=== PATIENT | male | born 1950 | race African-American/Black ===

== ENCOUNTER 2021-12-17 16:04 | Inpatient (IN) ==
[2021-12-17 17:14] LABS: ABS Lymphocytes 0.8 10^3/ul (1.0-4.8); ABS Neutrophils 5.7 10^3/ul (1.5-7.7); Hematocrit 38 % (42-52); Hemoglobin 12.7 g/dL (14.0-18.0); Lymphocyte % 10.2 %; Mean Corpuscular HGB Conc 34 g/dL (31-36); Mean Corpuscular Hemoglobin 28 pg (27-31); Mean Corpuscular Volume 82 fL (80-94); Mean Platelet Volume 8.5 fL (7.4-10.4); Nucleated Red Blood Cells % 0.1; Platelet Count 317 10^3/uL (150-450); Red Blood Count 4.58 10^6 /uL (4.18-5.48); Red Cell Distribution Width 13 % (10-15); White Blood Count 7.5 10^3/uL (3.5-10.8)
[2021-12-17 17:55] LABS: Albumin 3.3 g/dL (3.2-5.2); Albumin/Globulin Ratio 0.8 (1-3); Calcium 8.5 mg/dL (8.6-10.3); Globulin 3.9 g/dL (2-4); Magnesium 1.7 mg/dL (1.9-2.7); Potassium 3.7 mmol/L (3.5-5.0); Total Bilirubin 0.7 mg/dL (0.2-1.0); Total Protein 7.2 g/dL (6.4-8.9); eGFR CKD-EPI 104.5 (>60)
[2021-12-17] MEDS ORDERED: Lactated Ringers 1000 ml BAG 1,000 ML IV ONE (17:56)
[2021-12-17 18:05] LABS: Venous Bicarbonate HCO3 14.5 mmol/L (24-28)
[2021-12-17 18:09] LABS: Urine Appearance Clear; Urine Bilirubin Negative (Negative); Urine Blood 1+ (Negative); Urine Color Straw; Urine Glucose 3+(>=500 mg/dL) (Negative); Urine Ketones 2+ (Negative); Urine Nitrite Negative (Negative); Urine Protein Negative (Negative); Urine Specific Gravity 1.023 (1.002-1.030); Urine Urobilinogen Negative (Negative)
[2021-12-17 18:10] LABS: TSH Ultra Thyroid Stim Horm 5.38 mcIU/mL (0.34-5.60)
[2021-12-17 18:14] LABS: Urine Bacteria Absent (Absent); Urine Red Blood Cell Trace(0-2/hpf) (Absent); Urine Squamous Epithelial Cell Present (Absent); Urine White Blood Cell Trace(0-5/hpf) (Absent)
[2021-12-17] MEDS ORDERED: Dextrose 50% Syringe 50 ml 25 GM/50 ML SYRINGE IV PUSH PRN (18:21)
[2021-12-17] MEDS ORDERED: NORMOSOL-R pH 7.4 1000 mL BAG 1,000 ML IV ONE (18:21)
[2021-12-17] MEDS ORDERED: Insulin Infusion 100unit/100mL 100 UNIT/100 ML BAG IV SCH (19:00)
[2021-12-17] MEDS ORDERED: Ondansetron 4 mg VIAL 2 MG/ML 2 ml VIAL IV PRN (19:17)
[2021-12-17] MEDS ORDERED: NORMOSOL-R pH 7.4 1000 mL BAG 1,000 ML IV SCH (20:00)
[2021-12-17] MEDS ORDERED: NS 0.9% w/ 20 Meq KCL 1000 ml 1,000 ML IV SCH (20:00)
[2021-12-17] MEDS ORDERED: D5W NS 0.9% 20Meq KCL 1000 ml 1,000 ML IV SCH (21:00)
[2021-12-17 21:08] LABS: Insulin 1.3 mcIU/mL (2.0-16.0)
[2021-12-17 23:42] LABS: Blood Urea Nitrogen 12 mg/dL (6-24); CO2 Carbon Dioxide 22 mmol/L (22-32); Calcium 8.2 mg/dL (8.6-10.3); Chloride 97 mmol/L (101-111); Glucose 198 mg/dL (70-100); Magnesium 1.7 mg/dL (1.9-2.7); Sodium 130 mmol/L (135-145); eGFR CKD-EPI 107.3 (>60)
[2021-12-17 23:59] LABS: Anion Gap 11 mmol/L (2-11)
[2021-12-18] MEDS ORDERED: Insulin GLARGINE 100 un/ml 10 ml VIAL SUBCUT ONE ×2 (00:27→10:56)
[2021-12-18] MEDS: Enoxaparin 40 MG/0.4 ML SYR SUBCUT SCH ×2 (03:58→19:10)
[2021-12-18 04:50] LABS: CO2 Carbon Dioxide 26 mmol/L (22-32); Calcium 8.5 mg/dL (8.6-10.3); Chloride 98 mmol/L (101-111); Sodium 132 mmol/L (135-145)
[2021-12-18 04:55] LABS: Blood Urea Nitrogen 10 mg/dL (6-24); Glucose 120 mg/dL (70-100); eGFR CKD-EPI 111.8 (>60)
[2021-12-18 04:59] LABS: Anion Gap 8 mmol/L (2-11)
[2021-12-18] MEDS ORDERED: Dextrose 50% Syringe 50 ml 25 GM/50 ML SYRINGE IV PUSH PRN ×3 (05:05→11:00)
[2021-12-18 05:17] LABS: ABS Lymphocytes 0.5 10^3/ul (1.0-4.8); ABS Monocytes 0.8 10^3/ul (0-0.8); ABS Neutrophils 4.9 10^3/ul (1.5-7.7); Eosinophil % 0.2 %; Hematocrit 27 % (42-52); Hemoglobin 8.8 g/dL (14.0-18.0); Lymphocyte % 8.1 %; Mean Corpuscular HGB Conc 33 g/dL (31-36); Mean Corpuscular Hemoglobin 27 pg (27-31); Mean Corpuscular Volume 82 fL (80-94); Mean Platelet Volume 8.4 fL (7.4-10.4); Nucleated Red Blood Cells % 0.2; Platelet Count 224 10^3/uL (150-450); Red Blood Count 3.23 10^6 /uL (4.18-5.48); Red Cell Distribution Width 14 % (10-15); White Blood Count 6.3 10^3/uL (3.5-10.8)
[2021-12-18 08:46] LABS: ABS Basophils 0.1 10^3/ul (0-0.2); ABS Lymphocytes 1.1 10^3/ul (1.0-4.8); ABS Monocytes 1.5 10^3/ul (0-0.8); ABS Neutrophils 9.1 10^3/ul (1.5-7.7); Eosinophil % 0.2 %; Hematocrit 37 % (42-52); Hemoglobin 12.8 g/dL (14.0-18.0); Lymphocyte % 9.1 %; Mean Corpuscular HGB Conc 34 g/dL (31-36); Mean Corpuscular Hemoglobin 29 pg (27-31); Mean Corpuscular Volume 83 fL (80-94); Mean Platelet Volume 8.7 fL (7.4-10.4); Nucleated Red Blood Cells % 0.1; Platelet Count 311 10^3/uL (150-450); Red Blood Count 4.48 10^6 /uL (4.18-5.48); Red Cell Distribution Width 13 % (10-15); White Blood Count 11.8 10^3/uL (3.5-10.8)
[2021-12-18 09:30] LABS: CO2 Carbon Dioxide 28 mmol/L (22-32); Calcium 8.5 mg/dL (8.6-10.3); Chloride 98 mmol/L (101-111); Magnesium 1.8 mg/dL (1.9-2.7); Sodium 131 mmol/L (135-145)
[2021-12-18 09:38] LABS: Anion Gap 5 mmol/L (2-11); Blood Urea Nitrogen 11 mg/dL (6-24); Glucose 328 mg/dL (70-100); eGFR CKD-EPI 97.7 (>60)
[2021-12-18 11:15] LABS: Glucose Confirmatory 421 mg/dL (70-100)
[2021-12-18 11:16] LABS: Phosphorus 1.1 mg/dL (2.5-5.0); Potassium Redraw 3.4 mmol/L (3.5-5.0)
[2021-12-18] MEDS ORDERED: Potassium Phosphate IV 15 MMOLE in NS 0.9% 250 ml 250 ML IVPB ONE ×2 (11:28→19:00)
[2021-12-18] MEDS: Potassium Chloride IV 40 MEQ in Lactated Ringers 1000 ml BAG 1,000 ML IVPB SCH ×2 (13:07→20:40)
[2021-12-18 15:21] LABS: Calcium 9.2 mg/dL (8.6-10.3); Magnesium 1.8 mg/dL (1.9-2.7); Phosphorus 1.1 mg/dL (2.5-5.0); Phosphorus 1.2 mg/dL (2.5-5.0); Potassium 3.5 mmol/L (3.5-5.0); Potassium Redraw 3.3 mmol/L (3.5-5.0); eGFR CKD-EPI 104.5 (>60)
[2021-12-18] MEDS ORDERED: Potassium Phosphate IV 30 MMOLE in NS 0.9% 250 ml 250 ML IVPB ONE (19:15)
[2021-12-18] MEDS: Potassium Chloride IV 20 MEQ in Lactated Ringers 1000 ml BAG 1,000 ML IVPB SCH (20:10)
[2021-12-19] MEDS: Potassium Chloride IV 20 MEQ in Lactated Ringers 1000 ml BAG 1,000 ML IVPB SCH (06:49)
[2021-12-19 07:45] LABS: ABS Basophils 0.1 10^3/ul (0-0.2); ABS Monocytes 1.2 10^3/ul (0-0.8); ABS Neutrophils 5.7 10^3/ul (1.5-7.7); Eosinophil % 0.1 %; Hematocrit 32 % (42-52); Hemoglobin 11.3 g/dL (14.0-18.0); Lymphocyte % 12.9 %; Mean Corpuscular HGB Conc 35 g/dL (31-36); Mean Corpuscular Hemoglobin 29 pg (27-31); Mean Corpuscular Volume 82 fL (80-94); Mean Platelet Volume 8.4 fL (7.4-10.4); Nucleated Red Blood Cells % 0.1; Platelet Count 250 10^3/uL (150-450); Red Blood Count 3.94 10^6 /uL (4.18-5.48); Red Cell Distribution Width 13 % (10-15)
[2021-12-19 08:20] LABS: Magnesium 1.5 mg/dL (1.9-2.7); Phosphorus 2.8 mg/dL (2.5-5.0); eGFR CKD-EPI 116.4 (>60)
[2021-12-19 08:25] LABS: CKMB ng/mL 0.7 ng/mL (0.6-6.3); Potassium, Whole Blood 3.9 mmol/L (3.4-4.5)
[2021-12-19 08:55] LABS: Albumin 2.6 g/dL (3.2-5.2); Albumin/Globulin Ratio 0.9 (1-3); Direct Bilirubin 0.1 mg/dL (0.03-0.18); Indirect Bilirubin 0.4 mg/dL (0.3-1.0); Total Bilirubin 0.5 mg/dL (0.2-1.0); Total Protein 5.6 g/dL (6.4-8.9)
[2021-12-19] MEDS ORDERED: Magnesium Sulfate IV 3 GM in NS 0.9% 100 ml BAG 100 ML IVPB ONE (09:00)
[2021-12-19] MEDS: Insulin GLARGINE 100 un/ml 10 ml VIAL SUBCUT SCH (09:13)
[2021-12-19 12:17] LABS: C Reactive Protein 25.7 mg/L (<8.01)
[2021-12-19] MEDS: NS 0.9% 1000 ml BAG 1,000 ML IV SCH ×2 (12:31→23:37)
[2021-12-19] MEDS ORDERED: Iohexol 350 (CONTRAST) 500 ML MDV IV ONE (18:56)
[2021-12-19] MEDS: Enoxaparin 40 MG/0.4 ML SYR SUBCUT SCH (20:26)
[2021-12-19] MEDS ORDERED: Piperacillin/Tazobac ADVAN 3.375 GM in NS 0.9% 100 ml BAG 100 ML IV ONE (22:04)
[2021-12-19] MEDS ORDERED: Vancomycin 1,000 MG in NS 0.9% 250 ml 250 ML IVPB ONE (22:04)
[2021-12-19] MEDS ORDERED: Zosyn per Pharmacy NOTE FOLLOW UP SCH (23:00)
[2021-12-19] MEDS ORDERED: Vancomycin per Pharmacy 1 EA NOTE FOLLOW UP PRN (23:51)
[2021-12-20] MEDS: ZOSYN 3.375 GM Q8H per EXTENDED INFUSION IV SCH ×3 (06:32→21:08)
[2021-12-20 06:37] LABS: Hematocrit 34 % (42-52); Hemoglobin 11.5 g/dL (14.0-18.0); Mean Corpuscular HGB Conc 34 g/dL (31-36); Mean Corpuscular Hemoglobin 28 pg (27-31); Mean Corpuscular Volume 83 fL (80-94); Platelet Count 238 10^3/uL (150-450); Red Blood Count 4.03 10^6 /uL (4.18-5.48); Red Cell Distribution Width 14 % (10-15); White Blood Count 7.9 10^3/uL (3.5-10.8)
[2021-12-20 07:05] LABS: Albumin 2.5 g/dL (3.2-5.2); Albumin/Globulin Ratio 0.8 (1-3); Calcium 7.8 mg/dL (8.6-10.3); Direct Bilirubin 0.1 mg/dL (0.03-0.18); Globulin 3.3 g/dL (2-4); Indirect Bilirubin 0.5 mg/dL (0.3-1.0); Magnesium 1.7 mg/dL (1.9-2.7); Potassium 4.4 mmol/L (3.5-5.0); Total Bilirubin 0.6 mg/dL (0.2-1.0); Total Protein 5.8 g/dL (6.4-8.9); eGFR CKD-EPI 113.2 (>60)
[2021-12-20] MEDS ORDERED: Magnesium Sulfate 2 gm BAG 2 GM/50 ML BAG IVPB ONE (07:06)
[2021-12-20] MEDS: Insulin GLARGINE 100 un/ml 10 ml VIAL SUBCUT SCH (08:21)
[2021-12-20] MEDS: Polyethylene Glycol 3350 17 GM PACKET PO SCH ×2 (08:22→21:08)
[2021-12-20 08:23] LABS: Phosphorus 2.2 mg/dL (2.5-5.0)
[2021-12-20] MEDS ORDERED: Sodium Phosphate IV 15 MMOLE in NS 0.9% 250 ml 250 ML IV ONE (08:26)
[2021-12-20] MEDS: Vancomycin 750 MG in NS 0.9% 250 ML IVPB SCH ×2 (11:00→17:34)
[2021-12-20] MEDS: NS 0.9% 1000 ml BAG 1,000 ML IV SCH (11:01)
[2021-12-20] MEDS: Enoxaparin 40 MG/0.4 ML SYR SUBCUT SCH (21:07)
[2021-12-21] MEDS ORDERED: Vancomycin Trough Check NOTE FOLLOW UP ONE (00:30)
[2021-12-21] MEDS: NS 0.9% 1000 ml BAG 1,000 ML IV SCH ×3 (00:39→22:22)
[2021-12-21] MEDS: Vancomycin 750 MG in NS 0.9% 250 ML IVPB SCH (01:35)
[2021-12-21] MEDS: ZOSYN 3.375 GM Q8H per EXTENDED INFUSION IV SCH ×3 (05:25→22:22)
[2021-12-21 06:42] LABS: Albumin 2.2 g/dL (3.2-5.2); Albumin/Globulin Ratio 0.8 (1-3); Calcium 7.5 mg/dL (8.6-10.3); Direct Bilirubin 0.1 mg/dL (0.03-0.18); Globulin 2.9 g/dL (2-4); Indirect Bilirubin 0.4 mg/dL (0.3-1.0); Magnesium 1.6 mg/dL (1.9-2.7); Phosphorus 2.9 mg/dL (2.5-5.0); Potassium 4.1 mmol/L (3.5-5.0); Total Bilirubin 0.5 mg/dL (0.2-1.0); Total Protein 5.1 g/dL (6.4-8.9)
[2021-12-21] MEDS ORDERED: Magnesium Sulfate IV 3 GM in NS 0.9% 100 ml BAG 100 ML IVPB ONE (07:15)
[2021-12-21] MEDS ORDERED: Senna TAB 8.6 mg TAB PO PRN (07:54)
[2021-12-21] MEDS ORDERED: Polyethylene Glycol 3350 17 GM PACKET PO PRN (07:54)
[2021-12-21] MEDS ORDERED: Magnesium Hydroxide LIQ 30 ML UDC PO PRN (07:54)
[2021-12-21] MEDS: Polyethylene Glycol 3350 17 GM PACKET PO SCH ×2 (08:28→22:17)
[2021-12-21] MEDS: Magnesium Hydroxide LIQ 30 ML UDC PO SCH (08:29)
[2021-12-21] MEDS: Insulin GLARGINE 100 un/ml 10 ml VIAL SUBCUT SCH (08:37)
[2021-12-21] MEDS: Vancomycin 1000 MG in NS 0.9% 250 ML IVPB SCH ×2 (10:44→18:07)
[2021-12-21] MEDS: Calcium Carb (TUMS) 500 mg CHEW TAB PO PRN ×2 (14:42→22:19)
[2021-12-21] MEDS: Enoxaparin 40 MG/0.4 ML SYR SUBCUT SCH (22:20)
[2021-12-22] MEDS: Magnesium Hydroxide LIQ 30 ML UDC PO SCH (00:18)
[2021-12-22] MEDS: Vancomycin 1000 MG in NS 0.9% 250 ML IVPB SCH ×4 (03:10→22:22)
[2021-12-22] MEDS: ZOSYN 3.375 GM Q8H per EXTENDED INFUSION IV SCH ×2 (06:29→13:36)
[2021-12-22] MEDS ORDERED: Vancomycin Trough Check NOTE FOLLOW UP ONE (08:30)
[2021-12-22 09:21] LABS: Calcium 7.4 mg/dL (8.6-10.3); Magnesium 1.7 mg/dL (1.9-2.7); Potassium 4.3 mmol/L (3.5-5.0); eGFR CKD-EPI 102.5 (>60)
[2021-12-22] MEDS: Polyethylene Glycol 3350 17 GM PACKET PO SCH ×2 (09:25→23:43)
[2021-12-22] MEDS: Insulin GLARGINE 100 un/ml 10 ml VIAL SUBCUT SCH (09:25)
[2021-12-22] MEDS: NS 0.9% 1000 ml BAG 1,000 ML IV SCH (14:05)
[2021-12-22 15:08] LABS: Mycoplasma pneumoniae IgG Ab Positive (Negative); Mycoplasma pneumoniae IgM Ab Negative (Negative)
[2021-12-22] MEDS: Enoxaparin 40 MG/0.4 ML SYR SUBCUT SCH (22:23)
[2021-12-23] MEDS: ZOSYN 3.375 GM Q8H per EXTENDED INFUSION IV SCH ×3 (00:43→16:31)
[2021-12-23 06:31] LABS: Calcium 7.2 mg/dL (8.6-10.3); Magnesium 1.5 mg/dL (1.9-2.7); Potassium 4.2 mmol/L (3.5-5.0); eGFR CKD-EPI 103.5 (>60)
[2021-12-23 08:36] LABS: Glucose Confirmatory 438 mg/dL (70-100)
[2021-12-23] MEDS: Insulin GLARGINE 100 un/ml 10 ml VIAL SUBCUT SCH (08:58)
[2021-12-23] MEDS: Polyethylene Glycol 3350 17 GM PACKET PO SCH ×2 (08:59→19:43)
[2021-12-23] MEDS: Vancomycin 1000 MG in NS 0.9% 250 ML IVPB SCH (11:13)
[2021-12-23] MEDS ORDERED: Dextrose 50% Syringe 50 ml 25 GM/50 ML SYRINGE IV PUSH PRN (11:25)
[2021-12-23] MEDS ORDERED: Magnesium Sulfate IV 3 GM in NS 0.9% 100 ml BAG 100 ML IVPB ONE (11:26)
[2021-12-23] MEDS: NS 0.9% 1000 ml BAG 1,000 ML IV SCH (13:58)
[2021-12-23 18:45] LABS: Calcium 7.6 mg/dL (8.6-10.3); Potassium 4.2 mmol/L (3.5-5.0)
[2021-12-23 18:51] LABS: eGFR CKD-EPI 106.1 (>60)
[2021-12-23] MEDS: Enoxaparin 40 MG/0.4 ML SYR SUBCUT SCH (19:39)
[2021-12-24] MEDS: Vancomycin 1000 MG in NS 0.9% 250 ML IVPB SCH ×2 (00:15→13:04)
[2021-12-24] MEDS: ZOSYN 3.375 GM Q8H per EXTENDED INFUSION IV SCH ×3 (02:41→14:24)
[2021-12-24 06:41] LABS: ABS Basophils 0.1 10^3/ul (0-0.2); ABS Eosinophils 0.1 10^3/ul (0-0.6); ABS Lymphocytes 1.8 10^3/ul (1.0-4.8); ABS Monocytes 1.4 10^3/ul (0-0.8); ABS Neutrophils 5.6 10^3/ul (1.5-7.7); Eosinophil % 0.8 %; Hematocrit 28 % (42-52); Hemoglobin 9.6 g/dL (14.0-18.0); Lymphocyte % 20.2 %; Mean Corpuscular HGB Conc 35 g/dL (31-36); Mean Corpuscular Hemoglobin 29 pg (27-31); Mean Corpuscular Volume 84 fL (80-94); Mean Platelet Volume 8.2 fL (7.4-10.4); Nucleated Red Blood Cells % 0.1; Platelet Count 261 10^3/uL (150-450); Red Blood Count 3.29 10^6 /uL (4.18-5.48); Red Cell Distribution Width 14 % (10-15); White Blood Count 8.9 10^3/uL (3.5-10.8)
[2021-12-24 06:55] LABS: Albumin 2.3 g/dL (3.2-5.2); Albumin/Globulin Ratio 0.8 (1-3); Calcium 7.3 mg/dL (8.6-10.3); Globulin 2.8 g/dL (2-4); Total Bilirubin 0.4 mg/dL (0.2-1.0); Total Protein 5.1 g/dL (6.4-8.9); eGFR CKD-EPI 107.3 (>60)
[2021-12-24] MEDS ORDERED: Insulin GLARGINE 100 un/ml 10 ml VIAL SUBCUT SCH (09:00)
[2021-12-24] MEDS ORDERED: Vancomycin Trough Check NOTE FOLLOW UP ONE (09:30)
[2021-12-24 10:49] LABS: Vancomycin Trough 10.5 mcg/mL
[2021-12-24] MEDS: Polyethylene Glycol 3350 17 GM PACKET PO SCH (11:29)
[2021-12-24 15:42] VITALS: BP 103/63
[2021-12-25] MEDS ORDERED: Vancomycin 1,000 MG in NS 0.9% 250 ml 250 ML IVPB SCH
[2021-12-26] MEDS ORDERED: Vancomycin Trough Check NOTE FOLLOW UP ONE (11:30)
== END 2021-12-24 19:00 | disposition home health service (06) | DRG 637 ==
LOC: ED 16:04 → SUATTDRO 19:30 → EDHOLD 19:30 → MEDTELE 12-18 17:48
PROVIDERS: ADMIT Student in an Organized Health Care Education/Training Program; ATTEND Pediatrics